=== PATIENT | male | born 1955 | race African-American/Black ===

== ENCOUNTER 2018-04-26 14:34 | Emergency (ER) | payer BC ==
[~2018-04-26] VITALS: Ht 167.6 cm; Wt 46.0 kg
[~2018-04-26 14:34] MED LIST: ALBU18HF2 IH; GABA-531 PO; TAMS-11 PO
[2018-04-26 14:51] VITALS: BP 135/111
== END 2018-04-26 19:30 | disposition left against medical advice (07) ==
LOC: ER 14:34
DX: H92.02 Otalgia, left ear (principal); Z53.21 Procedure and treatment not carried out due to patient leaving prior to being seen by health care provider